=== PATIENT | female | born 1965 | race Two or more races ===

== ENCOUNTER 2017-08-17 10:10 | Observation (INO) | payer OTHER ==
[2017-08-17] MEDS ORDERED: ADENOSINE 6 MG/2 ML VIAL ONE (10:34)
--- NOTE | 2017-08-17 10:34 | CPEKG ---
Heart Rate: 176 RR Interval: 341 QRSD Interval: 74 QT Interval: 292 QTC Interval: 500 QRS [place]: -5 T Wave [place]: 96 EKG Severity - ABNORMAL ECG - EKG Impression: ATRIAL FIBRILLATION WITH RAPID V-RATE EKG Impression: VENTRICULAR PREMATURE COMPLEX EKG Impression: LVH WITH SECONDARY REPOLARIZATION ABNORMALITY Electronically Signed By: Hao Martinez 18-Aug-2017 13:56:06
[2017-08-17] MEDS ORDERED: DILTIAZEM 25 MG/5 ML VIAL IVP ONE ×2 (10:40)
[2017-08-17] MEDS ORDERED: DILTIAZEM 125 MG in D5W 125 ML IV ONE (10:40)
--- NOTE | 2017-08-17 10:44 | EDPHY ---
H & P Stated Complaint: feeling "weak all over" since 6 am fatigue Time Seen by Provider: 08/17/17 10:30 - Personal History LMP (Females 10-55): Unknown Current Tetanus/Diphtheria Vaccine: Unsure Current Tetanus Diphtheria and Acellular Pertussis (TDAP): Unsure - Medical/Surgical History Hx Asthma: Yes Hx Chronic Respiratory Disease: No Hx Diabetes: No Hx Cardiac Disease: No Hx Renal Disease: No Hx Cirrhosis: No Hx Alcoholism: No Hx HIV/AIDS: No Hx Splenectomy or Spleen Trauma: No Other PMH: Gastric bypass, htn. carpal tunnel surg. Cholecystectomy. "Migraines ". pneumia admission [facility] 08/05/17 - Social History Smoking Status: Former smoker Constitutional: Initial Vital Signs Temperature (C) 36.7 C 08/17/17 10:15 Heart Rate 155 H 08/17/17 10:15 Respiratory Rate 22 H 08/17/17 10:15 Blood Pressure 88/71 L 08/17/17 10:15 O2 Sat (%) 100 08/17/17 10:15 O2 Delivery Mode Nasal Cannula O2 (L/minute) 4 Allergies/Adverse Reactions: No Known Allergies Allergy (Verified 08/17/17 10:12) Home Medications: Medication Instructions Recorded Albuterol 08/17/17 Amlodipine Besylate 08/17/17 Budesonide/Formoterol 160/4.5 2 puffs IH BID 08/17/17 [Symbicort 160-4.5 Mcg Inh (*)] Escitalopram Oxalate [Lexapro] 15 mg PO DAILY@12 08/17/17 Ferrous Sulfate [Ferrous Sulf 325 325 mg PO DAILY 08/17/17 MG (*)] Metoprolol Succinate 08/17/17 Pantoprazole Sodium [Protonix 40mg 40 mg PO BID 08/17/17 (*)] hydrALAZINE [Apresoline 50 mg (*)] 50 mg PO QID 08/17/17 predniSONE [predniSONE] 20 mg PO DAILY 08/17/17 Medical Decision Making - Diagnostics Imaging Results: Imaging Impressions Chest X-Ray 08/17/17 10:41 Impression: 1. Mild airways disease and hypoventilation. No pneumonia or effusion. 2. Minimal cardiomegaly. No failure. Imaging: Discussed imaging studies w/ call manager Radiologist, I viewed and interpreted images myself ED Course/Re-evaluation: CHIEF COMPLAINT: Rapid heart rate HISTORY OF PRESENT ILLNESS: The patient is a 52 y/o female arriving with her family member complaining of a rapid heart rate onset 06:00 this morning, 4.5 hours ago. She has no prior history of arrhythmias or cardiac disease, but does have asthma and sarcoidosis that affects her joints and lungs. She was admitted to [facility] for a week 07/30/17-08/05/17 for pneumonia. She has felt okay since then until symptoms began this morning. She has associated palpitations and exertional dyspnea. REVIEW OF SYSTEMS: A 10 point review of systems was performed and is negative with the exception of the elements mentioned in the history of present illness. PHYSICAL EXAM: HR 189, BP 128/80, O2 Sat, RR. Temp noted General Appearance: Alert, well hydrated, appropriate, and obese, anxious- appearing. Head: Atraumatic without scalp tenderness or obvious injury Eyes: Pupils equal, round, reactive to light and accommodation, EOMI, no trauma , no injection. Nose: Atraumatic, no rhinorrhea, clear. Throat: Mucus membranes moist. Neck: Supple Respiratory: No retractions, no distress, no wheezes, and no accessory muscle use. Lungs are clear to auscultation bilaterally. Cardiovascular: Rapid irregular rate and rhythm, no murmurs, rubs, or gallops. Good capillary refill all extremities. Gastrointestinal: Abdomen is soft, non-tender, non-distended, no masses, no rebound, no guarding, no peritoneal signs. Musculoskeletal: Normal active ROM of all extremities, atraumatic. Neurological: Alert, appropriate, and interactive. The patient has non-focal cranial nerves, motor, sensory, and cerebellar exam. Skin: No rashes, good turgor, no nodules on palpation. PAST MEDICAL HISTORY: Asthma, sarcoidosis with lung and joint involvement, hypertension, migraines PAST SURGICAL HISTORY: Gastric bypass, cholecystectomy SOCIAL HISTORY: Family member at bedside. . Lives in [place]. Employed. DIAGNOSTICS/PROCEDURES/CRITICAL CARE TIME: The 12 lead EKG was interpreted by myself. Rapid atrial fibrillation rate 179. See hard copy and/or "tracemaster" electronic copy for interpretation. The 12 lead EKG was interpreted by myself. Atrial fibrillation with controlled rate 95-105. See hard copy and/or "tracemaster" electronic copy for interpretation. Chest x-ray: cardiomegaly Critical care time spent by me, Dr. Martinez, exclusively with this patient was 35 minutes, exclusive of PA time and exclusive of procedures. The organ system at risk was cardiovascular. Time spent in serial assessments of the patient, discussion with patient's family, consideration of rate control methods, cardiology consultation, and review of labs, imaging, and EKGs. DIFFERENTIAL DIAGNOSIS: The differential diagnosis for the patient's narrow complex tachycardia included but was not limited to various causes of sinus tachycardia such as dehydration and medicines, SVT, atrial flutter, atrial fibrillation, pulmonary causes. MEDICAL DECISION MAKING: This is an obese 52 y/o female who presents with a 4.5-hour history of acute onset rapid heart rate this morning. Her initial heart rate is around 180 and irregular, likely rapid atrial fibrillation. She has a history of asthma and sarcoidosis, but no prior history of cardiac disease or dysrhythmias. Plan for IV, labs, EKG, and appropriate rate control based on EKG. EKG shows rapid atrial fibrillation around 180. IV Diltazem bolus and drip ordered. 1050: Repeat EKG shows atrial fibrillation now with controlled rate between 95- 105. WBC elevated 24, troponin elevated, BNP elevated, and chest x-ray shows cardiomegaly. Consistent with acute CHF with heart strain from rapid rate. 1132: Consulted with [facility]. They will consult on patient during admission. 1138: Spoke with hospitalist service. Dr. Hanson accepts admission for atrial fibrillation, CHF, and elevated troponin. - Data Points Laboratory Results: Laboratory Results 08/17/17 10:50 08/17/17 10:50 08/17/17 08/17/17 08/17/17 10:50 10:50 10:50 WBC 24.49 10^3/uL H 10^3/uL (3.80-9.50) RBC 3.05 10^6/uL L 10^6/uL (4.18-5.33) Hgb 8.1 g/dL L g/dL (12.6-16.3) Hct 27.8 % L % (38.0-47.0) MCV 91.1 fL fL (81.5-99.8) MCH 26.6 pg L pg (27.9-34.1) MCHC 29.1 g/dL L g/dL (32.4-36.7) RDW 31.8 % H % (11.5-15.2) Plt Count 286 10^3/uL 10^3/uL (150-400) MPV 9.5 fL fL (8.7-11.7) Neut % (Auto) Not Reported Lymph % (Auto) Not Reported Clarke % (Auto) Not Reported Eos % (Auto) Not Reported Baso % (Auto) Not Reported Nucleat RBC Rel Count 2.4 % H % (0.0-0.2) Absolute Neuts (auto) Not Reported Absolute Lymphs (auto) Not Reported Absolute Monos (auto) Not Reported Absolute Eos (auto) Not Reported Absolute Basos (auto) Not Reported Absolute Nucleated RBC 0.58 10^3/uL H 10^3/uL (0-0.01) Immature Gran % Not Reported Seg Neutrophils % 96 % % Band Neutrophils % 1 % % Lymphocytes % 1 % % Monocytes % 2 % % Immature Gran # Not Reported Absolute Seg Neuts 23.51 10^/uL H 10^/uL (1.70-6.50) Absolute Band Neuts 0.24 10^3/uL 10^3/uL (0.00-0.70) Absolute Lymphocytes 0.24 10^3/uL L 10^3/uL (1.00-3.00) Absolute Monocytes 0.49 10^3/uL 10^3/uL (0.30-0.80) Nucleated RBCs 1 /100 WBC H /100 WBC (0-0) Platelet Estimate ADEQUATE (ADEQ) Polychromasia 2+ H Hypochromasia 1+ H Microcytic Cells 1+ H Oval Macrocytes 1+ H Smear Review By Pending PT 13.1 SEC SEC (12.0-15.0) INR 0.97 (0.83-1.16) APTT 21.1 SEC L SEC (23.0-38.0) Sodium 138 mEq/L mEq/L (135-145) Potassium 4.2 mEq/L mEq/L (3.5-5.2) Chloride 105 mEq/L mEq/L (97-110) Carbon Dioxide 19 mEq/l L mEq/l (22-31) Anion Gap 14 mEq/L mEq/L (8-16) BUN 24 mg/dL H mg/dL (7-23) Creatinine 1.2 mg/dL H mg/dL (0.6-1.0) Estimated GFR 47 Glucose 140 mg/dL H mg/dL (70-100) Calcium 9.0 mg/dL mg/dL (8.5-10.4) Magnesium 2.1 mg/dL mg/dL (1.6-2.3) Troponin I 0.057 ng/mL H ng/mL (0.000-0.034) NT-Pro-B Natriuret Pep 1700 pg/mL H pg/mL (0-125) Medications Given: Discontinued Medications Diltiazem HCl (Cardizem 25 Mg/5 Ml Vial) 20 mg IVP EDNOW ONE Stop: 08/17/17 10:41 Last Admin: 08/17/17 10:42 Dose: 20 mg Diltiazem HCl 125 mg/ Dextrose 125 mls @ 0 mls/hr IV EDNOW ONE; As Directed PRN Reason: Protocol Stop: 08/17/17 10:41 Last Admin: 08/17/17 11:50 Dose: Not Given Diltiazem/Dextrose (Diltiazem 125mg/125ml (Premix)) 125 mls @ 0 mls/hr IV EDNOW ONE; Titrate PRN Reason: Protocol Stop: 08/17/17 11:01 Last Admin: 08/17/17 11:11 Dose: 125 mls Departure - Departure Disposition: Home, Routine, Self-Care Clinical Impression: New onset atrial fibrillation, Elevated troponin CHF (congestive heart failure) Qualifiers: Congestive heart failure type: unspecified Congestive heart failure chronicity : acute Qualified Code(s): I50.9 - Heart failure, unspecified Condition: Fair Referrals: Tomas Dos Santos MD [Primary Care Provider] - As per Instructions Report Scribed for: Hao Martinez Report Scribed by: Danay Bailey Date of Report: 08/17/17 Time of Report: 11:25
--- NOTE | 2017-08-17 10:53 | CPEKG ---
Heart Rate: 94 RR Interval: 638 QRSD Interval: 78 QT Interval: 356 QTC Interval: 446 QRS [place]: 4 T Wave [place]: 79 EKG Severity - ABNORMAL ECG - EKG Impression: ATRIAL FIBRILLATION EKG Impression: LEFT VENTRICULAR HYPERTROPHY Electronically Signed By: Hao Martinez 18-Aug-2017 13:56:06
--- NOTE | 2017-08-17 10:55 | CPEKG ---
Heart Rate: 176 RR Interval: 341 QRSD Interval: 78 QT Interval: 292 QTC Interval: 500 QRS [place]: 2 T Wave [place]: 92 EKG Severity - ABNORMAL ECG - EKG Impression: ATRIAL FIBRILLATION WITH RAPID V-RATE EKG Impression: LVH WITH SECONDARY REPOLARIZATION ABNORMALITY Electronically Signed By: Hao Martinez 18-Aug-2017 13:56:06
[2017-08-17] MEDS ORDERED: DILTIAZEM HCL/D5W 125 ML IV SCH ×2 (11:00)
[2017-08-17] MEDS ORDERED: DILTIAZEM HCL/D5W 125 ML IV ONE (11:00)
[2017-08-17 11:03] LABS: PLATELET COUNT 286 10^3/uL (150-400)
[2017-08-17 11:32] LABS: INR 0.97 (0.83-1.16); PROTIME(PATIENT) 13.1 SEC (12.0-15.0)
[2017-08-17] MEDS ORDERED: ONDANSETRON 4 MG/2 ML VIAL IVP PRN (12:48)
[2017-08-17] MEDS ORDERED: ACETAMINOPHEN 325 MG TAB PO PRN (12:48)
[2017-08-17] MEDS ORDERED: ONDANSETRON DISINTEGRATING 4 MG TAB PO PRN (12:48)
[2017-08-17] MEDS ORDERED: ALBUTEROL 60 PUFFS/8 GM MDI IH PRN (13:36)
--- NOTE | 2017-08-17 13:48 | GHP ---
[f rep st] HISTORY AND PHYSICAL DATE OF ADMISSION: 08/17/2017 HISTORY OF PRESENT ILLNESS: The patient is a pleasant 52-year-old female with a history of sarcoidos is, remote gastric bypass, as well as recent admission to [facility], where she was diagnosed wit h sepsis and pneumonia. She was discharged on a course of steroids, which she is currently completin g. She presents today with palpitations and shortness of breath and some subjective chest pain. She was found to be in rapid atrial fibrillation, which is a new finding for her. In speaking with her, she also notes a bit of dysuria. She did not have a catheter during a recent admission. This morni ng at 6 a.m. she noted rapid heart rate. She also had what she described as a large abdominal wall hematoma, with distention from low-molecula r weight heparin injections that required been any imaging or consideration of evacuation. She does not have pain there. REVIEW OF SYSTEMS: Complete 10-point Review of Systems conducted negative except as noted in the HPI . PAST MEDICAL HISTORY: 1. Sarcoidosis primarily manifested as a skin rash on her lower extremities, some joint pains, and p ulmonary symptoms such as asthma. 2. Gastric bypass. 3. Hypertension. 4. Carpal tunnel surgery. 5. Cholecystectomy. 6. Migraines. 7. Recent admission to [facility]. ALLERGIES: No known drug allergies. MEDICATIONS: Albuterol, amlodipine, metoprolol, as well as possible steroid taper. SOCIAL HISTORY: No tobacco, quit 25 years ago. Rare alcohol. Lives in [place]. Works as a rec eptionist in a dentist's office. FAMILY HISTORY: Her mother recently had a 4-vessel bypass, and is currently an inpatient at [facility]. PHYSICAL EXAMINATION: VITAL SIGNS: Temp 36.7. Blood pressure 88/71, now over 100. Pulse initially 155, now in the 90s. She is breathing 20 times a minute. 100% on 2 L. GENERAL: In no acute distr ess. HEENT: Sclerae anicteric. Oropharynx clear. Mucous membranes are moist. NECK: Supple witho ut lymphadenopathy or JVD. LUNGS: Clear to auscultation bilaterally, although her exam is limited b y her body habitus. HEART: S1, S2. Regular. ABDOMEN: Soft. There is a 15-inch diameter circular ecchymoses without fluctuance or pain with palpation. LOWER EXTREMITIES: Show trace edema bilatera lly. Calves are nontender. SKIN: Without rash. NEUROLOGIC: Nonfocal. LABS: Sodium 138, potassium 4.2, chloride 105, bicarb 19, BUN 24, creatinine 1.2, normal baseline is 0.9. Glucose 140. Troponin 0.057. BNP is elevated at 1700. INR is 1. White count is 24.5, with a hemoglobin of 8, hematocrit of 27.8, platelets of 286,000. She has a left shift. IMAGING STUDIES: Chest x-ray, interpreted by me, shows airway disease and cardiomegaly. There is no congestive heart failure. EKG: Presenting EKG, interpreted by me, shows rapid atrial fibrillation at 176, normal axis, diffuse ST changes, and peak T-waves. Subsequent EKG shows AFib at a rate of mo re around 100 or 90, with no ST or T-wave changes, and is not on EKG since she converted. I have dis cussed the case Dr. Hao Martinez. ASSESSMENT AND PLAN: 52-year-old female, who presents with leukocytosis, new atrial fibrillation, re cent hospitalization. 1. Atrial fibrillation. She currently converted on a diltiazem drip. I will not continue this. I will reconcile her medications when they have been completed by pharmacy. 2. Question pulmonary embolism. Patient has a recent hospitalization. 3. Rapid atrial fibrillation. Will do a CT pulmonary embolus to rule out pulmonary embolism. I do not think she has pneumonia. 4. Leukocytosis. This is reactive. She has had steroids. Although they are not in the MAR, she te lls me she has had them. I will send a urinalysis. 5. Urinary urgency. Sent urinalysis. 6. Elevated troponin. We will cycle this. Perform echocardiogram in conjunction with the new atria l fibrillation. 7. Question anticoagulation. Patient does not warrant anticoagulation given her CHADS-VASc of 1, ti me limited atrial fibrillation. 8. Abdominal wall hematoma. I will check an abdominal ultrasound. 9. Disposition: Observation status. /[id number]/MODL
[2017-08-17] MEDS ORDERED: IOPAMIDOL (ISOVUE 370) 100 ML BTL IV ONE (13:59)
[2017-08-17] MEDS ORDERED: ALBUTEROL 200 PUFFS/18 GM MDI IH PRN (14:30)
[2017-08-17] MEDS: ESCITALOPRAM OXALATE 10 MG TAB PO SCH (16:47)
[2017-08-17] MEDS ORDERED: ENOXAPARIN 80 MG/0.8 ML SYR SC SCH ×2 (18:00→21:00)
--- NOTE | 2017-08-17 18:15 | ECHO ---
[email or web address] [address] [address] Main: [phone] Fax: Transthoracic Echocardiogram Name: JOSE RAUL KUHN MR#: [id number] Study Date: 08/17/2017 Study Time: 02:03 PM Date of : 1965 Age: 52 year(s) Height: 162.6 cm (64 in.) Weight: 83.92 kg (185 lb.) BSA: 1.89 m2 Gender: Female Examination: Echo Indication: new AF Image Quality: Technically Difficult Contrast: Requested by: Mario Hanson BP: 122 mmHg/72 mmHg Heart Rate: Rhythm: Indication: new AF Procedure Staff Granite Countertop Installer: Keyanna Monsalve Reading Physician: John Lombardo Requesting Provider: Conclusions: Normal size left ventricle. Mild concentric LV hypertrophy. Normal global systolic LV function. EF is 71 %. No regional wall motion abnormality. Normal size right ventricle. Normal RV function. The left atrium is normal in size. The right atrium is normal in size. Aortic valve is not well visualized. Aortic sclerosis is present. Trivial to mild aortic valve regurgitation. Mean aortic valve gradient 12. Mildly elevated velocity across the aortic valve. Tricuspid valve not well visualized. There is no significant tricuspid valve regurgitation. Normal size aortic root measuring 2.7 cm. Normal size ascending aorta measuring 3.5 cm. No pericardial effusion. This is a poor quality study. A cause for the patient's new onset atrial fibrillation is not identified on the basis of this study. Measurements: Chambers Valvular Assessment AV/MV Valvular Assessment TV/PV Normal Normal Normal Name Value Range Name Value Range Name Value Range Ao Janna (MM): 2.7 cm (2.2 cm-3.7 AV Vmax: 2.32 m/s (1 m/s-1.7 PV Vmax: 1.24 m/s (0.6 m/s-0.9 cm) m/s) m/s) Patient: JOSE RAUL KUHN Study Date: 08/17/2017 Page 1 of 2 02:03 PM IVSd (MM): 1.2 cm (0.6 cm-0.9 AV maxP mmHg ( - ) PV PGmax: 6 mmHg ( - ) cm) AV meanP mmHg ( - ) LVDd (MM): 5.0 cm (3.9 cm-5.3 LVOT Vmax: 1.33 m/s (0.7 m/s-1.1 cm) m/s) LVDs (MM): 3.0 cm (2 cm-3.8 NAEEM (Vmax): 1.8 cm2 ( - ) cm) NAEEM (VTI): 1.9 cm ( - ) LVPWd (MM): 1.1 cm (0.6 cm-0.9 MV E Vmax: 0.96 m/s ( - ) cm) MV A Vmax: 1.36 m/s ( - ) LVOTd 2.0 cm 2.0 cm mm MV E/A: 0.71 ( - ) LVEF (MM): 71 (>=55 %) MV meanP mmHg ( - ) MVA (Vmax): 2.3 m/s ( - ) Continued Measurements: Valvular Assessment AV/MV Name Value MV DecTime: 264 m/s MV VTI: 38.60 cm Additional Vessels Name Value Ao Ascendin.5 cm Findings: Left Ventricle: Normal size left ventricle. Mild concentric LV hypertrophy. Normal global systolic LV function. EF is 71 %. No regional wall motion abnormality. Right Ventricle: Normal size right ventricle. Normal RV function. Left Atrium: The left atrium is normal in size. Right Atrium: The right atrium is normal in size. Mitral Valve: The mitral valve is normal in appearance and function. There is no mitral valve regurgitation. Aortic Valve: Aortic valve is not well visualized. Aortic sclerosis is present. Trivial to mild aortic valve regurgitation. Mean aortic valve gradient 12. Mildly elevated velocity across the aortic valve. Tricuspid Valve: Tricuspid valve not well visualized. There is no significant tricuspid valve regurgitation. Pulmonic Valve: Pulmonary valve not well visualized. Aorta: Normal size aortic root measuring 2.7 cm. Normal size ascending aorta measuring 3.5 cm. Pericardium: No pericardial effusion. (No Signature Object) Patient: JOSE RAUL KUHN Study Date: 08/17/2017 Page 2 of 2 02:03 PM [id number]
[2017-08-17] MEDS: PANTOPRAZOLE SODIUM 40 MG TAB PO SCH (20:13)
[2017-08-17] MEDS ORDERED: LORazepam 0.5 MG TAB PO ONE (20:15)
[2017-08-17] MEDS: BUDESONIDE/FORMOTEROL 160/4.5 60 PUFFS/MDI IH SCH (21:49)
--- NOTE | 2017-08-17 21:54 | CPEKG ---
Heart Rate: 82 RR Interval: 732 P-R Interval: 152 QRSD Interval: 84 QT Interval: 404 QTC Interval: 472 P [place]: 14 QRS [place]: -6 T Wave [place]: 76 EKG Severity - ABNORMAL ECG - EKG Impression: SINUS RHYTHM EKG Impression: LEFT VENTRICULAR HYPERTROPHY Electronically Signed By: Bradley Fraga 18-Aug-2017 10:04:42
--- NOTE | 2017-08-17 23:18 | PDCONSULT ---
Rn Field Note: #[id number] Surgery consult dictated S MD Kathya, FACS
--- NOTE | 2017-08-18 00:10 | GCON ---
[f rep st] CONSULTATION SURGICAL CONSULTATION DATE OF CONSULTATION: 08/17/2017 REFERRING PHYSICIAN: Dr. Mario Hanson. CHIEF COMPLAINT: Abdominal wall bruising and hematoma. HISTORY OF PRESENT ILLNESS: The patient is a 52-year-old female, who was hospitalized at [facility] recently for pneumonia and sepsis. The patient received prophylactic anticoagulation with subcu taneous injections in the abdominal wall at that time, and was discharged home to complete a steroid taper. She was admitted earlier today when she developed tachycardia and was found to be in rapid at rial fibrillation. A CT angio of the chest showed bilateral pulmonary emboli. PAST MEDICAL HISTORY: Significant for sarcoidosis, obesity, hypertension, and migraines. Recent hos pitalization for pneumonia. Currently, atrial fibrillation with rapid ventricular response. PREVIOUS SURGERIES: Include gastric bypass, cholecystectomy, abdominoplasty, and carpal tunnel surge ry. ALLERGIES: She has no known drug allergies. CURRENT MEDICATIONS: Include Tylenol, albuterol inhaler, amlodipine, Symbicort, Lexapro, ferrous sul fate, heparin, hydralazine, metoprolol, Zofran, Protonix, prednisone. HABITS: Patient quit smoking cigarettes 25 years ago. Denies alcohol use. SOCIAL HISTORY: The patient's mother underwent open heart surgery at [facility] and remains hospitalized for postoperative recovery. The patient works in a dentist's office. FAMILY HISTORY: Significant for vascular disease. REVIEW OF SYSTEMS: Patient denies abdominal pain, nausea, vomiting. PHYSICAL EXAMINATION: VITAL SIGNS: Blood pressure is 156/79, pulse is 92, respiratory rate is 27, O 2 saturation is 98% on 1 L, temperature is 37.3. GENERAL: The patient is a pleasant, mildly anxious , middle-aged woman who appears in no acute distress. LUNGS: Clear. HEART: Irregular in rate and rhythm with a 2/6 systolic ejection murmur. ABDOMEN: Protuberant, soft with a well-healed midline i ncision. There is diffuse ecchymoses and mild tenderness on either side of the midline. There is no fluctuance. Ecchymosis extends into the flank and hip areas on both sides, indicating some chronici ty. IMAGING STUDIES: Review the patient's CT scan shows mild cardiomegaly, prominent mediastinal lymph n odes, segmental right middle lobe and left lower lobe pulmonary emboli of indeterminate age. The lef t upper abdominal wall hematoma is partially seen on this study. Abdominal ultrasound showed bilater al abdominal wall hematomas measuring 8.9 x 12.5 x 4.4 on the right and 11.7 x 11 x 3 cm on the left. IMPRESSION: 1. Bilateral abdominal wall hematomas, possibly related to prior injections though spontaneous hemor rhage while on anticoagulation can occur. These do not appear acute and are minimally symptomatic at this time. 2. Bilateral pulmonary emboli. 3. New onset atrial fibrillation with rapid ventricular response. 4. Obesity. 5. Status post gastric bypass surgery and cholecystectomy with abdominoplasty. 6. Recent hospitalization for pneumonia/bronchitis. Currently on a steroid taper. 7. History of sarcoidosis. RECOMMENDATIONS: Would recommend observation and monitor while instituting anticoagulation therapy p er Medicine. I would consider indications for drainage if either one of the hematomas was infected o r underwent rapid expansion. /[id number]/MODL
[2017-08-18] MEDS ORDERED: MELATONIN 3 MG TAB PO PRN (00:11)
[2017-08-18] MEDS: oxyCODONE IR 5 MG TAB PO PRN ×3 (00:42→10:02)
[2017-08-18 04:39] LABS: PLATELET COUNT 208 10^3/uL (150-400)
[2017-08-18 04:44] VITALS: BP 167/79
[2017-08-18] MEDS ORDERED: HEPARIN/DEXTROSE 500 ML IV SCH (05:00)
[2017-08-18] MEDS ORDERED: HEPARIN 10,000 UNIT/10 ML MDV IVP PRN (05:00)
[2017-08-18] MEDS ORDERED: HEPARIN 10,000 UNIT/10 ML MDV IVP ONE (05:00)
[2017-08-18 07:11] VITALS: PULSE 83; RESP 15; TEMP 98.5; O2SAT 96
[2017-08-18] MEDS: PANTOPRAZOLE SODIUM 40 MG TAB PO SCH (08:40)
[2017-08-18] MEDS: BUDESONIDE/FORMOTEROL 160/4.5 60 PUFFS/MDI IH SCH (08:41)
[2017-08-18] MEDS ORDERED: METOPROLOL SUCCINATE XR 100 MG TAB PO SCH (09:00)
[2017-08-18] MEDS ORDERED: predniSONE 10 MG TAB PO SCH (09:00)
[2017-08-18] MEDS ORDERED: FERROUS SULFATE 325 MG TAB PO SCH (09:00)
[2017-08-18] MEDS ORDERED: RIVAROXABAN 15 MG TAB PO SCH (09:30)
[2017-08-18] MEDS: ESCITALOPRAM OXALATE 10 MG TAB PO SCH (12:22)
--- NOTE | 2017-08-18 14:02 | ASDISCHSUM ---
Discharge Information Plan Status:Home with No Needs Medically Cleared to Leave: Discharge Date:08/18/2017 01:15 PM CM D/C Disposition:Home, Routine, Self-Care ADT D/C Disposition:Home, Routine, Self-Care Projected Discharge Date:08/18/2017 01:15 PM Transportation at D/C:Family Discharge Delay Reason: Follow-Up Date:08/18/2017 01:15 PM Discharge Slot: Final Diagnosis: Placement Information Patient Contact Information Contact Name:SWETHA Relationship: Address:[address] City:[place] Alternate Phone: [facility]/Zip Code:[place] [address] Email: Financial Information Financial Class:HMO and PPO Plans Primary Plan Desc:[employer] Primary Plan Number:[id number] Secondary Plan Desc: Secondary Plan Number: Assessment Information Intervention Information Intervention Type:*Incorrect Registration Date of Service:08/17/2017 01:40 PM Patient Type:Inpatient Staff Member:LAMONT Fajardo Kerry Hours: Discipline: Severity: Comment:
--- NOTE | 2017-08-19 05:10 | GDS ---
[f rep st] DISCHARGE SUMMARY DISCHARGE DIAGNOSES: Include: 1. Acute bilateral pulmonary emboli. 2. Atrial fibrillation with rapid ventricular response. 3. History of sarcoidosis. 4. Abdominal wall hematoma. HISTORY OF PRESENT ILLNESS: A 52-year-old female, who presents with complaints of palpitations. For details of the patient's initial presentation, please see the history and physical dated 08/17/2017. CONSULTATIVE SERVICES: General Surgery. PROCEDURES: 1. On 08/17/2017, patient had a CTA of the chest, which confirms bilateral pulmonary emboli. 2. On 08/17/2017, patient had a transthoracic echocardiogram, which confirms normal RV size and func tion. HOSPITAL COURSE: By issue: 1. Acute pulmonary embolism. Suspect related to the patient's recent hospitalization. The patient was initiated on anticoagulation overnight without complication related to her abdominal wall hematom a. The patient is being discharged to home with novel anticoagulant, Rivaroxaban. She will complete a 21 day load and then assume daily 20 mg dosing. 2. Atrial fibrillation with rapid ventricular response. I suspect this is related to acute pulmonar y embolism. The patient's atrial fibrillation converted to sinus overnight. She is being discharged on anticoagulation for pulmonary embolism and is chronically on metoprolol 100 mg daily. I do not t hink additional treatment is required at this time. She can follow with her outpatient primary care provider. 3. Abdominal wall hematoma thought secondary to anticoagulants used at the outside hospital. The andre khan will continue to follow in the outpatient setting. Her hematoma remained stable on anticoagula tion during her observation stay. MEDICATIONS AT THE TIME OF DISPOSITION: Please reference med rec printed on 08/18/2017. FOLLOWUP APPOINTMENTS: Include with her primary care provider in the next 7-10 days for her first po st disposition followup. PENDING STUDIES: At the time of this dictation are none. TIME SPENT: I spent greater than 30 minutes in the planning and coordination of this discharge. /[id number]/MODL
== END 2017-08-18 13:15 | disposition home or self-care (01) ==
LOC: INTOOBSV 11:47 → F2W 12:49
PROVIDERS: ADMIT Internal Medicine; ATTEND Hospitalist
DX: I48.91 Unspecified atrial fibrillation (principal); I26.99 Other pulmonary embolism without acute cor pulmonale; M79.81 Nontraumatic hematoma of soft tissue; T45.515A Adverse effect of anticoagulants, initial encounter; D72.829 Elevated white blood cell count, unspecified; R79.89 Other specified abnormal findings of blood chemistry; I51.7 Cardiomegaly; I10 Essential (primary) hypertension; J45.909 Unspecified asthma, uncomplicated; G43.909 Migraine, unspecified, not intractable, without status migrainosus; R30.0 Dysuria; E66.9 Obesity, unspecified; Z79.01 Long term (current) use of anticoagulants; Z87.891 Personal history of nicotine dependence; Z87.39 Personal history of other diseases of the musculoskeletal system and connective tissue; Z87.09 Personal history of other diseases of the respiratory system; Z82.49 Family history of ischemic heart disease and other diseases of the circulatory system; Z98.84 Bariatric surgery status
CPT/HCPCS: 71045; 71275; 76705; 93005; 93306; 96365; 96366; 96375; 99291; G0378; 85520-90; J0153; J1644; J1650; J7512; Q9967

== ENCOUNTER → 2018-04-15 | Outpatient (CLI) | payer OTHER | LOC: CIMAGING 09:39 | PROVIDERS: ATTEND Family Medicine | DX: J98.09 Other diseases of bronchus, not elsewhere classified (principal) | CPT/HCPCS: 71046-PO ==

== ENCOUNTER 2018-08-06 22:35 | Inpatient (IN) | payer OTHER ==
--- NOTE | 2018-08-06 22:46 | EDPHY ---
H & P Stated Complaint: ASTHMA EXAC Time Seen by Provider: 08/06/18 22:46 HPI/ROS: HPI CHIEF COMPLAINT: "Asthma attack" HISTORY OF PRESENT ILLNESS: 53-year-old female, multiple medical problems including asthma, previous pulmonary embolisms, hypertension, migraine headaches , sarcoidosis, AFib, was been off the Xarelto for 2 weeks. Presents emergency room with progressively worsening shortness of breath over last 24 hr with dyspnea on exertion. Dry cough. States her main complaint is that when she exerts herself she gets short of breath. No significant wheezing. Denies fever , vomiting or diarrhea. Past Medical History: Significant medical history for asthma, pulmonary embolism, hypertension, migraine headaches, sarcoidosis, AFib Past Surgical History: Cholecystectomy Social History: Denies drugs alcohol tobacco. Family History: Noncontributory ROS REVIEW OF SYSTEMS: 10 Systems were reviewed and negative with the exception of the elements mentioned in the history of present illness. Exam Constitutional triage nursing summary reviewed, vital signs reviewed, awake/ alert. Vital signs noted tachycardic. Not hypoxic. Hypertensive. Eyes normal conjunctivae and sclera, EOMI, PERRLA. HENT normal inspection, atraumatic, moist mucus membranes, no epistaxis, neck supple/ no meningismus, no raccoon eyes. Respiratory no significant wheezing on exam clear to auscultation bilaterally, normal breath sounds, no respiratory distress, no wheezing. Cardiovascular tachycardia l, regular rhythm, no murmur, no edema, distal pulses normal. Gastrointestinal soft, non-tender, no rebound, no guarding, normal bowel sounds, no distension, no pulsatile mass. Genitourinary no CVA tenderness. Musculoskeletal no midline vertebral tenderness, full range of motion, no calf swelling, no tenderness of extremities, no meningismus, good pulses, neurovascularly intact. Skin pink, warm, & dry, no rash, skin atraumatic. Neurologic awake, alert and oriented x 3, AAOx3, moves all 4 extremities equally, motor intact, sensory intact, CN II-XII intact, normal cerebellar, normal vision, normal speech. Psychiatric normal mood/affect. Heme/Lymph/Immune no lymphadenopathy. Differential Diagnosis: Includes but is not limited to in a particular order acute asthma corrective airway disease, bronchitis, pneumonia, pneumothorax, CHF , ACS PE Medical Decision Making: Plan for this patient she is not wheezing, clear lungs bilaterally, however complains of shortness of breath and dyspnea on exertion, no chest pain. Re-evaluation: Plan for this patient breathing treatment, chest x-ray, EKG, troponin, D-dimer, IV falls, basic blood work, rule out ACS, rule out PE. EKG interpretation by me on record in [employer] [facility] [employer] system. Impression time of EKG 2256, sinus tach 111, LVH present. Left atrial enlargement present. Prolonged QT present. Without acute ischemia. Patient noted to have an elevated D-dimer in the setting of previous PEs and shortness of breath without wheezing on exam will proceed with CT angiogram of the chest. She is off her Xarelto. BNP elevated. Troponin negative. EKG nonischemic and similar to previous EKG CT angiogram of the chest shows no evidence of PE. Sarcoidosis on CT scan Enlarged lymph nodes that needs follow-up. Bilateral pleural effusions Bilateral lung infiltrates concerning for pulmonary edema Given the patient's elevated BNP, dyspnea on exertion, shortness of breath with no PE on CT scan will proceed with IV Lasix 40 mg admit to medicine service for hypoxia, shortness of breath, dyspnea on exertion. Source: Patient - Personal History LMP (Females 10-55): Unknown Current Tetanus Diphtheria and Acellular Pertussis (TDAP): Yes - Medical/Surgical History Hx Asthma: Yes Hx Chronic Respiratory Disease: Yes Hx Diabetes: No Hx Cardiac Disease: No Hx Renal Disease: No Hx Cirrhosis: No Hx Alcoholism: No Hx HIV/AIDS: No Hx Splenectomy or Spleen Trauma: No Other PMH: Gastric bypass, htn. carpal tunnel surg. Cholecystectomy. "Migraines ". pneumia admission [facility] 08/05/17, ASTHMA, PE'S - Social History Smoking Status: Former smoker Constitutional: Initial Vital Signs Temperature (C) 36.6 C 08/06/18 22:43 Heart Rate 115 H 08/06/18 22:43 Respiratory Rate 24 H 08/06/18 22:43 Blood Pressure 205/109 H 08/06/18 22:43 O2 Sat (%) 94 08/06/18 22:43 O2 Delivery Mode Nasal Cannula O2 (L/minute) 3 Allergies/Adverse Reactions: No Known Allergies Allergy (Verified 08/17/17 10:12) Home Medications: Medication Instructions Recorded Albuterol [Proventil Inhaler HFA 1 puffs IH DAILY PRN 01/12/18 (*)] Budesonide/Formoterol 160/4.5 2 puffs IH BID 08/17/17 [Symbicort 160-4.5 Mcg Inh (*)] Escitalopram Oxalate [Lexapro 10 20 mg PO DAILY@12 08/17/17 MG] Metoprolol Succinate Xr [Toprol Xl 100 mg PO DAILY 08/17/17 100 mg (*)] amLODIPine BESYLATE [Norvasc 10 mg 10 mg PO DAILY 08/17/17 (*)] hydrALAZINE [Apresoline 50 mg (*)] 50 mg PO QID 08/17/17 predniSONE 40 mg PO DAILY PRN 08/17/17 Acetaminophen [Tylenol ES 500 mg 1,000 mg PO Q6 PRN 08/07/18 (*)] Albuterol [Proventil Neb] 2.5 mg IH Q4H PRN 08/07/18 Montelukast Sodium [Singulair 10 10 mg PO DAILY@1700 08/07/18 mg (*)] Medical Decision Making - Data Points Laboratory Results: Laboratory Results 08/07/18 05:08 08/07/18 05:08 08/07/18 05:08 Potassium 3.6 mEq/L mEq/L (3.5-5.2) Microbiology Results: MICROBIOLOGY 08/07/18 09:30 Nasal, Sinus - Swab Respiratory Panel (PCR) - Final No Organism Detected By Pcr Medications Given: Acetaminophen (Tylenol) 650 mg PO Q4HRS PRN PRN Reason: Pain, Mild/Fever, Can Take PO Stop: 02/03/19 04:36 Last Admin: 08/07/18 20:22 Dose: 650 mg Hydrocodone Bitart/Acetaminophen ([place] 5/325) 1 - 2 tab PO Q4HRS PRN PRN Reason: Pain, Moderate Able to Take PO Stop: 08/17/18 04:36 Last Admin: 08/07/18 05:20 Dose: 1 tab Albuterol/Ipratropium (Duoneb) 3 ml IH Q6HRS PRN PRN Reason: Short of Breath/Dyspnea Stop: 02/03/19 12:09 Last Admin: 08/07/18 13:55 Dose: 3 ml Amlodipine Besylate (Norvasc) 10 mg PO DAILY JORDAN Stop: 02/03/19 08:59 Last Admin: 08/07/18 09:24 Dose: 10 mg Budesonide/Formoterol Fumarate (Symbicort 160-4.5 Mcg Inhaler) 2 puffs IH BID [facility] Stop: 02/03/19 20:59 Last Admin: 08/07/18 20:11 Dose: 2 puffs Furosemide (Lasix Injection) 20 mg IVP BIDDIUR [facility] Stop: 02/03/19 08:59 Last Admin: 08/07/18 15:28 Dose: 20 mg Guaifenesin (Mucinex) 600 mg PO BID [facility] Stop: 02/03/19 12:29 Last Admin: 08/07/18 20:23 Dose: 600 mg Hydralazine HCl (Apresoline) 50 mg PO QID [facility] Stop: 02/03/19 08:29 Last Admin: 08/07/18 20:23 Dose: 50 mg Lorazepam (Ativan) 0.5 - 1 mg PO Q4HRS PRN PRN Reason: Anxiety, Able to Take PO Stop: 02/03/19 22:42 Last Admin: 08/07/18 23:12 Dose: 1 mg Metoprolol Succinate (Toprol Xl) 100 mg PO DAILY [facility] Stop: 02/03/19 08:59 Last Admin: 08/07/18 09:24 Dose: 100 mg Metoprolol Tartrate (Lopressor Injection) 5 mg IVP Q6HRS [facility] Stop: 02/04/19 00:00 Last Admin: 08/07/18 23:13 Dose: 5 mg Montelukast Sodium (Singulair) 10 mg PO DAILY@1700 [facility] Stop: 02/03/19 16:59 Last Admin: 08/07/18 15:34 Dose: 10 mg Discontinued Medications Acetaminophen (Tylenol) 650 mg PO EDNOW ONE Stop: 08/06/18 23:28 Last Admin: 08/06/18 23:31 Dose: 650 mg Albuterol/Ipratropium (Duoneb) 3 ml IH EDNOW ONE Stop: 08/06/18 22:52 Last Admin: 08/06/18 22:58 Dose: 3 ml Furosemide (Lasix Injection) 40 mg IVP EDNOW ONE Stop: 08/07/18 00:32 Last Admin: 08/07/18 01:00 Dose: 40 mg Hydralazine HCl (Apresoline) 10 mg IVP ONCE ONE Stop: 08/07/18 06:49 Last Admin: 08/07/18 07:13 Dose: 10 mg Sodium Chloride (Ns) 1,000 mls @ 0 mls/hr IV EDNOW ONE; Wide Open PRN Reason: Protocol Stop: 08/06/18 22:51 Last Admin: 08/06/18 23:06 Dose: 1,000 mls Potassium Chloride (Klor-Con) 10 - 40 meq PO ONCE ONE PRN Reason: Protocol Stop: 08/07/18 19:42 Last Admin: 08/07/18 20:23 Dose: 10 meq Point of Care Test Results: Chemistry 08/06/18 23:06 POC Troponin I 0.01 ng/mL ng/mL (0.00-0.08) Departure - Departure Disposition: [facility] Inpatient Acute Clinical Impression: Dyspnea on exertion Condition: Fair
[2018-08-06] MEDS ORDERED: NS 1,000 ML IV ONE (22:50)
[2018-08-06] MEDS ORDERED: IPRATROPIUM/ALBUTEROL 3 ML DEYVIAL IH ONE (22:51)
[2018-08-06 23:12] LABS: PLATELET COUNT 185 10^3/uL (150-400)
[2018-08-06 23:20] LABS: INR 0.98 (0.83-1.16); PROTIME(PATIENT) 13.2 SEC (12.0-15.0)
[2018-08-06] MEDS ORDERED: ACETAMINOPHEN 325 MG TAB ONE (23:25)
[2018-08-06] MEDS ORDERED: ACETAMINOPHEN 325 MG TAB PO ONE (23:27)
[2018-08-06] MEDS ORDERED: IOPAMIDOL (ISOVUE 370) 100 ML BTL IV ONE (23:48)
[2018-08-07] MEDS ORDERED: FUROSEMIDE 40 MG/4 ML VIAL IVP ONE (00:31)
[2018-08-07] MEDS ORDERED: ONDANSETRON 4 MG/2 ML VIAL IVP PRN (04:37)
[2018-08-07] MEDS ORDERED: ONDANSETRON DISINTEGRATING 4 MG TAB PO PRN (04:37)
[2018-08-07] MEDS ORDERED: PROMETHAZINE HCL 25 MG/ML INJ IVP PRN (04:42)
[2018-08-07 05:16] LABS: PLATELET COUNT 165 10^3/uL (150-400)
[2018-08-07] MEDS: HYDROCODONE/APAP 5/325 TAB PO PRN (05:20)
[2018-08-07] MEDS ORDERED: hydrALAZINE 20 MG/ML VIAL IVP ONE (06:48)
[2018-08-07] MEDS: FUROSEMIDE 20 MG/2 ML VIAL IVP SCH ×2 (07:13→15:28)
--- NOTE | 2018-08-07 07:59 | PDGENHP ---
History and Physical - Chief Complaint Shortness of breath - History of Present Illness Source-patient provides history appears reliable. EMR was reviewed and case discussed with ED provider. 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 Patient reports that she developed severe dyspnea on exertion has not been able to walk more than 5 steps at a time and had to take breaks just to walk from her bed to the bathroom. She has noted increasing orthopnea and occasional PND. She has chronic lower extremity edema which she feels that is about baseline. The patient is followed by Dr. Dallas Johnston with pulmonology. She had requested that she stop her Xarelto and 07/20/2018 so that repeat lab work could be complete possibly for hyper coag lab studies. Patient also notes that she has been having increased episodes of the the asthma exacerbations and had been on a prednisone burst for the last 6 days. Patient was not having significant improvement on she had been prescribed for 5 days but took an additional 1 day dose. She denies any fevers or chills. She has no chest pain or palpitations. He History Information - Allergies/Home Medication List Allergies/Adverse Reactions: No Known Allergies Allergy (Verified 08/17/17 10:12) Home Medications: Albuterol [Proventil Inhaler HFA (*)] 1 puffs IH DAILY PRN 08/17/17 [Last Taken Unknown] Budesonide/Formoterol 160/4.5 [Symbicort 160-4.5 Mcg Inh (*)] 2 puffs IH BID 07/23 [Last Taken 08/17/17] Escitalopram Oxalate [Lexapro 10 MG] 15 mg PO DAILY@12 08/17/17 [Last Taken 06/23] Ferrous Sulfate [Ferrous Sulf 325 MG (*)] 325 mg PO DAILY 08/17/17 [Last Taken 08/16/17] Metoprolol Succinate Xr [Toprol Xl 100 mg (*)] 100 mg PO DAILY 08/17/17 [Last Taken 08/17/17] Pantoprazole Sodium [Protonix 40mg (*)] 40 mg PO BID 08/17/17 [Last Taken ] amLODIPine BESYLATE [Norvasc 10 mg (*)] 10 mg PO DAILY 08/17/17 [Last Taken 07/23] hydrALAZINE [Apresoline 50 mg (*)] 50 mg PO QID 08/17/17 [Last Taken 08/17/17 09 :00] predniSONE 20 mg PO DAILY 08/17/17 [Last Taken 08/17/17] I have personally reviewed and updated: family history, medical history, social history, surgical history - Past Medical History Additional medical history: Chronic back pain, HTN, migraine headaches, sarcoidosis presenting as a skin rash, joint pains and pulmonary symptoms such status not type, morbid obesity BMI 45.1 patient reports that she has gained 60 lb since requiring steroid burst for sarcoid, PE 08/25/2017 which for which she was treated with Xarelto recently discontinued on 07/20/2018 for labs follow-up studies, atrial fibrillation - Surgical History Additional surgical history: Gastric bypass, carpal tunnel release, cholecystectomy. - Family History Additional family history: Multiple family members with hypertension and CAD. Father with history of a CABG x5 vessel in at age 60, mother with history CABG x4 vessel age 75 - Social History Smoking Status: Former smoker Alcohol Use: Rarely Drug Use: None Additional social history: Patient is lives with her . She is receptive and a stent dental office. Cor status full Review of Systems Review of Systems: ROS: 10pt was reviewed & negative except for what was stated in HPI & below Constitutional: Reports: malaise. Denies: chills, fever EENMT: Reports: no symptoms. Denies: nose congestion, sore throat Cardiac: Reports: edema (Chronic lower extremity edema at baseline per patient.) . Denies: palpitations, syncope Respiratory: Reports: cough, orthopnea, shortness of breath, wheezing Gastrointestinal: Reports: no symptoms Genitourinary: Reports: no symptoms Muscolosketal: Reports: no symptoms Skin: Reports: no symptoms Neurological: Reports: no symptoms Hematologic/Lymphatic: Reports: no symptoms Physical Exam Physical Exam: Selected Entries 08/06/18 22:43 Blood Pressure Automatic Method Heart Rate 115 H Respiratory 24 H Rate O2 Sat (%) 94 Temperature (C) 36.6 C Blood Pressure 205/109 H Mean Arterial 141 H Pressure (MAP) O2 Delivery Room Air Mode Temperature Oral Source Temp Pulse Resp BP Pulse Ox 37.0 C 83 16 204/114 H 98 08/07/18 07:03 08/07/18 07:03 08/07/18 07:03 08/07/18 07:08 08/07/18 07:03 O2 (L/minute) 3 Constitutional: no apparent distress, obese, uncomfortable (Patient is restless and awake.), other (NAD. Pleasant and cooperative.) Eyes: PERRL (Decreased reactivity light bilaterally), anicteric sclera, EOMI, scleral injection Ears, Nose, Mouth, Throat: moist mucous membranes, No poor dentition (Dental repairs.) Cardiovascular: regular rate and rhythym, pulses symmetric bilaterally, edema (2 + pitting edema bilaterally below the knee.) Peripheral Pulses: 1+: dorsalis-pedis (R) (limited secondary to edema), dorsalis -pedis (L) (Limited secondary to edema.) Respiratory: reduced air movement, inspiratory crackles (The bibasilarly.), respiratory distress (Increased work of breathing patient able to speak in full sentences.), No expiratory wheeze, No rhonchi Gastrointestinal: normoactive bowel sounds, soft, non-tender abdomen, distension , other (Obese abdomen) Genitourinary: no bladder tenderness, No atwood in urethra Skin: warm, normal color, no rashes or abrasions, No rash Musculoskeletal: full muscle strength, No generalized weakness Neurologic: AAOx3, sensation intact bilaterally, other (Grossly nonfocal.), No facial droop Psychiatric: interacting appropriately, not encephalopathic, thought process linear, anxious, other (Pleasant and cooperative. Patient is restless.) Lab Data & Imaging Review 08/07/18 05:08 08/07/18 05:08 WBC 8.28 10^3/uL (3.80-9.50) 08/07/18 05:08 RBC 4.24 10^6/uL (4.18-5.33) 08/07/18 05:08 Hgb 13.3 g/dL (12.6-16.3) 08/07/18 05:08 Hct 40.3 % (38.0-47.0) 08/07/18 05:08 MCV 95.0 fL (81.5-99.8) 08/07/18 05:08 MCH 31.4 pg (27.9-34.1) 08/07/18 05:08 MCHC 33.0 g/dL (32.4-36.7) 08/07/18 05:08 RDW 13.5 % (11.5-15.2) 08/07/18 05:08 Plt Count 165 10^3/uL (150-400) 08/07/18 05:08 MPV 9.1 fL (8.7-11.7) 08/07/18 05:08 Neut % (Auto) 78.9 % (39.3-74.2) H 08/07/18 05:08 Lymph % (Auto) 13.4 % (15.0-45.0) L 08/07/18 05:08 Arroyo % (Auto) 7.0 % (4.5-13.0) 08/07/18 05:08 Eos % (Auto) 0.0 % (0.6-7.6) L 08/07/18 05:08 Baso % (Auto) 0.2 % (0.3-1.7) L 08/07/18 05:08 Nucleat RBC Rel Count 0.0 % (0.0-0.2) 08/07/18 05:08 Absolute Neuts (auto) 6.53 10^3/uL (1.70-6.50) H 08/07/18 05:08 Absolute Lymphs (auto) 1.11 10^3/uL (1.00-3.00) 08/07/18 05:08 Absolute Monos (auto) 0.58 10^3/uL (0.30-0.80) 08/07/18 05:08 Absolute Eos (auto) 0.00 10^3/uL (0.03-0.40) L 08/07/18 05:08 Absolute Basos (auto) 0.02 10^3/uL (0.02-0.10) 08/07/18 05:08 Absolute Nucleated RBC 0.00 10^3/uL (0-0.01) 08/07/18 05:08 Immature Gran % 0.5 % (0.0-1.1) 08/07/18 05:08 Immature Gran # 0.04 10^3/uL (0.00-0.10) 08/07/18 05:08 RBC/WBC/PLT Morphology TNP 08/06/18 23:01 Platelet Estimate TNP 08/06/18 23:01 PT 13.2 SEC (12.0-15.0) 08/06/18 23:01 INR 0.98 (0.83-1.16) 08/06/18 23:01 APTT 25.1 SEC (23.0-38.0) 08/06/18 23:01 D-Dimer 0.67 ug/mLFEU (0.00-0.50) H 08/06/18 23:01 Sodium 138 mEq/L (135-145) 08/07/18 05:08 Potassium 3.5 mEq/L (3.5-5.2) 08/07/18 05:08 Chloride 109 mEq/L (97-110) 08/07/18 05:08 Carbon Dioxide 23 mEq/l (22-31) 08/07/18 05:08 Anion Gap 6 mEq/L (6-14) 08/07/18 05:08 BUN 9 mg/dL (7-23) 08/07/18 05:08 Creatinine 0.6 mg/dL (0.6-1.0) 08/07/18 05:08 Estimated GFR > 60 08/07/18 05:08 Glucose 96 mg/dL (70-100) 08/07/18 05:08 Calcium 9.3 mg/dL (8.5-10.4) 08/07/18 05:08 Magnesium 1.9 mg/dL (1.6-2.3) 08/06/18 23:01 Total Bilirubin 0.9 mg/dL (0.1-1.4) 08/06/18 23:01 Conjugated Bilirubin 0.2 mg/dL (0.0-0.5) 08/06/18 23:01 Unconjugated Bilirubin 0.7 mg/dL (0.0-1.1) 08/06/18 23:01 AST 38 IU/L (14-46) 08/06/18 23:01 ALT 45 IU/L (9-52) 08/06/18 23:01 Alkaline Phosphatase 98 IU/L (38-126) 08/06/18 23:01 POC Troponin I 0.01 ng/mL (0.00-0.08) 08/06/18 23:06 NT-Pro-B Natriuret Pep 3600 pg/mL (0-125) H 08/06/18 23:01 Total Protein 7.7 g/dL (6.3-8.2) 08/06/18 23:01 Albumin 4.6 g/dL (3.5-5.0) 08/06/18 23:01 Lipase 49 IU/L (23-300) 08/06/18 23:01 TSH 0.699 uIU/mL (0.465-4.680) 08/07/18 05:08 Imaging Review: Portable AP Upright Chest, at 11:08 PM Clinical History: 53-year-old female with a history of known sarcoidosis, PE, asthma, a dry cough, and dyspnea on exertion with hypertension. Comparison Study: Chest, dated 04/15/2018. Findings: There are mild hypoventilatory features. The cardiac silhouette remains mildly enlarged. There is diffuse peribronchial thickening and pulmonary vascular redistribution. Overlying breast soft tissue results in some increased attenuation at the lung bases; a mild infiltrate in the left lower lobe is not excluded (PA and lateral radiographs in the department may be of benefit in further assessment, as clinically directed). There is no pleural effusion or pneumothorax. The trachea is midline. The osseous structures are age-appropriate. Impression: Mild hypoventilatory features with cardiomegaly and diffuse peribronchial thickening. The above features could reflect bronchitis/airways' disease, and/or mild fluid overload (some developing airspace disease at the left lung base is not excluded, partially obscured by overlying breast soft tissue). Dictated By: Jani Sterling MD Contrast Enhanced CT Scan of the Chest CT (CT Angiography) Clinical History: 53-year-old female with known sarcoidosis, a prior PE (off of Xarelto for 2 weeks , and a mildly elevated D-dimer), asthma, dry cough, and dyspnea on exertion. Technique: Following the uncomplicated intravenous administration of 80 mL of Isovue-370, a multidetector helical CT scan was obtained from the base of the neck inferiorly to the upper abdomen during peak arterial phase, with images reformatted in soft tissue, lung , liver, and bone windows, and are reformatted at sequential 1.50 mm and overlapping 4/3 mm increments. Multiplanar reconstructions were reviewed on the workstation. The DFOV is 31.7 cm. Dose reduction techniques were utilized. Comparison Studies: Chest radiography dated 08/06/18 and 04/15/2018, and radiography and CT angiography of the chest dated 08/17/2017. Findings: CT Angiography: The main pulmonary artery, the main right and left pulmonary arteries, and the first order pulmonary artery segments are contrast-opacified, with no filling defect to suggest acute or chronic thromboemboli. Because of breathing artifact and the timing bolus, there is inadequate assessment of the secondary and tertiary pulmonary artery segments. There is no interventricular septum deviation, nor is there any reflux of contrast into the intrahepatic IVC. The ascending and descending thoracic aorta, as well as the visualized upper abdominal aorta are normal in caliber, with no aneurysm or dissection. There is a normal anatomic arrangement of the great vessels off of the aortic arch. There is no coronary artery atherosclerotic calcification. The pericardium is normal. The heart is mildly enlarged, with mild left ventricular hypertrophy. Contrast-Enhanced CT Scan of the Chest: There is peribronchial thickening, and there has been interval development of bilateral groundglass attenuation infiltrates, with involvement of the right left upper lobes, lingula, right middle lobe, and the right and left lower lobes. These could be infectious or inflammatory in etiology (mild alveolar edema from fluid overload is considered secondarily). There is a trace amount of pleural fluid suspected posteromedially (series 5, image 146). There is no pneumothorax or pneumomediastinum. There is a 19 x 21 mm precarinal lymph node on series 5, image 75, previously measuring 11 x 12 mm. There is a 13 x 23 mm right hilar lymph node on series 5, image 83, previously measuring 12 x 13 mm. There is a 22 x 27 mm subcarinal lymph node on series 5, image 90 which previously measured 10 x 15 mm. There are also more conspicuous prevascular lymph nodes identified in the superior mediastinum on series 5, image 62. There is no supraclavicular, axillary, internal mammary, pericardiophrenic, retrocrural, or upper abdominal adenopathy. The visualized portions of the thyroid gland are normal. The visualized upper abdomen is notable for postsurgical changes following gastric bypass and a prior cholecystectomy. There is mild diffuse hepatic steatosis. The osseous structures are age-appropriate, with multilevel degenerative change of the thoracic spine. There is a very mild kyphosis, with no vertebral body compression fracture, posterior malalignment, or aggressive osseous lesion. Impression: 1. There is no convincing CT evidence for residual or recurrent pulmonary artery thromboemboli ( with the caveat that because of breathing artifact and the timing bolus, there is suboptimal assessment of the secondary and tertiary pulmonary arterial segments). 2. Cardiomegaly. 3. Diffuse peribronchial thickening with interval development of bilateral groundglass attenuation infiltrates, which could be infectious or inflammatory in etiology. The possibility of mild superimposed alveolar edema (fluid overload) is considered secondarily. There are suspected trace pleural effusions. 4. Interval enlargement of mediastinal and hilar lymph nodes in this patient with prior sarcoidosis. Clinical correlation is suggested, and it may be worthwhile to consider repeat CT imaging in 3-6 months and consultation with the patient's environmental adviser. 5. Sequela of prior gastric bypass and cholecystectomy. Findings were discussed with Nemesio Fournier MD at 0:25, on 08/07/2018. Dictated By: Jani Sterling MD EKG additional interpertation: Sinus tachycardia in the 110s. Lad. LVH. QTC is [address] changes Assessment & Plan Assessment: 53-year-old female with history of sarcoidosis, HTN, morbid obesity BMI 45.1, atrial fibrillation, history of bilateral PE status post nearly 1 year Xarelto presents to the ED today with 24 hr of worsening dyspnea on exertion, cough, edema and PND. #Dyspnea on exertion (Acute) - patient with orthopnea, PND, edema - DDx - including cardiac sarcoidosis, CHF/cardiomyopathy (significant family history for CAD), malignant hypertension, PE ruled out, pneumonia, pleural effusion. Patient reports some minimal improvement following Lasix. Will continue with diuresis. Echocardiogram has been ordered for this morning. #Pleural effusion - small bilateral pleural effusions. Lasix and echocardiogram as noted above. #Accelerated hypertension - resume patient's home medication when med rec available. Hydralazine IV p.r.n. At this time. #History of PE - CTA was negative. Further clarify laboratory studies per Dr. Johnston #Morbid obesity, BMI 45.1 patient reports significant weight increase after multiple steroid burst. #History of atrial fibrillation - the patient was diagnosed with bilateral PE at time of this diagnosis. patient currently sinus tachycardia. Monitor on telemetry. Resume patient's metoprolol. FEN - SLIV. electrolyte monitoring and replacement prn. diet as tolerated. PPX - SCDs as tolerated. Holding anticoagulation once appropriate labs have all been ordered than prophylactic dosing. Cor status-full. Disposition-patient initially admitted to observation status to see response to diuresis. Based on exam clear the patient will likely require greater than 2 midnight stay given the severity of her dyspnea. Will change to inpatient status.
--- NOTE | 2018-08-07 09:02 | ECHO ---
[email or web address] [address] Main: [phone] Fax: Transthoracic Echocardiogram Name: JOSE RAUL LEE MR#: [id number] Study Date: 08/07/2018 Study Time: 07:37 AM Date of : 1965 Age: 53 year(s) Height: 162.6 cm (64 in.) Weight: 118.84 kg (262 lb.) BSA: 2.19 m2 Gender: Female Examination: Echo Indication: Dyspnea/pleural effusions Image Quality: Technically Difficult Contrast: Requested by: Nasreen Hdez BP: 179 mmHg/103 mmHg Heart Rate: Rhythm: Indication: Dyspnea/pleural effusions Procedure Staff Prestressed Concrete Laborer: Penny Kinsey RDCS Reading Physician: Marcin Holman MD Requesting Provider: Conclusions: Mild concentric LV hypertrophy. EF is 62 %. Mild aortic valve regurgitation is present. technically limited study. Measurements: Chambers Valvular Assessment AV/MV Valvular Assessment TV/PV Normal Normal Normal Name Value Range Name Value Range Name Value Range Ao Janna (MM): 3.0 cm (2.2 cm-3.7 MV E Vmax: 1.79 m/s ( - ) cm) MV A Vmax: 1.19 m/s ( - ) IVSd (2D): 1.4 cm (0.6 cm-1.1 MV E/A: 1.50 ( - ) cm) LVDd (2D): 5.2 cm (3.9 cm-5.3 cm) LVDs (2D): 3.4 cm (2.1 cm-4 cm) LVPWd (2D): 1.4 cm ( - ) LVEF (2D): 62 (>=54 %) Continued Measurements: Chambers Name Value LADs: 4.8 cm Additional Vessels Name Value Patient: JOSE RAUL LEE Study Date: 08/07/2018 Page 1 of 2 07:37 AM Ao Ascendin.6 cm Findings: Left Ventricle: Normal size left ventricle. Mild concentric LV hypertrophy. Global hypercontractility of the left ventricle. EF is 62 %. Right Ventricle: Normal size right ventricle. Left Atrium: The left atrium is mildly dilated. Right Atrium: The right atrium is normal in size. Mitral Valve: Mitral valve not well visualized. Aortic Valve: Aortic valve is not well visualized. Mild aortic valve regurgitation is present. 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 Cannot R/O bicuspid valve (abnormal closure in M-mode).. Tricuspid Valve: Tricuspid valve not well visualized. Pulmonic Valve: Pulmonary valve not well visualized. Aorta: Normal size aortic root measuring 3.0 cm. Normal size ascending aorta measuring 3.6 cm. Pericardium: No pericardial effusion. Exam Comments: technically limited study. (No Signature Object) Patient: JOSE RAUL LEE Study Date: 08/07/2018 Page 2 of 2 07:37 AM [id number]
[2018-08-07] MEDS: METOPROLOL SUCCINATE XR 100 MG TAB PO SCH (09:24)
[2018-08-07] MEDS: ACETAMINOPHEN 325 MG TAB PO PRN ×3 (09:24→20:22)
--- NOTE | 2018-08-07 11:38 | ASMTCMCOM ---
CM Note CM Note Notes: Pts case discussed in tx rounds. Pt is a 53 /o female admitted for CHF. Pt will most likely not have any dc needs. CM available for changes. Plan: Independent Date Signed: 08/07/2018 11:37 AM Electronically Signed By:ELZA Juarez
[2018-08-07] MEDS ORDERED: IPRATROPIUM/ALBUTEROL 3 ML DEYVIAL IH PRN (12:10)
--- NOTE | 2018-08-07 12:14 | HOSPPROG ---
Hospitalist Progress Note Assessment/Plan: 53-year-old female with history of sarcoidosis, HTN, morbid obesity BMI 45.1, atrial fibrillation, history of bilateral PE status post nearly 1 year Xarelto presents with 24 hr of worsening dyspnea on exertion, cough, edema and PND. #Dyspnea on exertion (Acute) - Patient with orthopnea, PND, edema - DDx - including cardiac sarcoidosis, CHF/cardiomyopathy (significant family history for CAD), malignant hypertension, PE ruled out, pneumonia, pleural effusion, viral syndrome, bronchitis, asthma exacerbation (on recent course of steroids) - CXR on admission showed diffuse peribronchial thickening - CTA on admission shows diffuse peribronchial thickening, development of b/l ground glass opacities representing infectious vs. inflammatory process vs. mild pulmonary edema - Patient reports improvement following Lasix, able to ambulate with minimal WHITMAN this AM - Will continue with diuresis, 20 mg IV Lasix qd - Will consult Pulmonology due to new ground glass b/l infiltrates - TTE pending - Wean 02 as tolerated #Pleural effusion - trace bilateral pleural effusions. Lasix and echocardiogram as noted above. #Accelerated hypertension - Resume patient's home medications including Hydralazine, Metoprolol, and Amlodipine - Hydralazine IV p.r.n. At this time. #History of PE - CTA was negative on admission #Morbid obesity, BMI 45.1 patient reports significant weight increase after multiple steroid burst. #History of atrial fibrillation - The patient was diagnosed with bilateral PE at time of this diagnosis. - Patient currently sinus tachycardia. - Monitor on telemetry. - Resume patient's metoprolol. FEN - SLIV. electrolyte monitoring and replacement prn. diet as tolerated. PPX - SCDs as tolerated. Cor status-full. Disposition-patient initially admitted to observation status to see response to diuresis. Based on exam clear the patient will likely require greater than 2 midnight stay given the severity of her dyspnea. Will change to inpatient status. Objective: Vital Signs Temp Pulse Resp BP Pulse Ox 36.8 C 79 16 174/88 H 98 08/07/18 11:09 08/07/18 11:09 08/07/18 11:09 08/07/18 11:09 08/07/18 11:09 Microbiology 08/07/18 09:30 Respiratory Panel (PCR) - Final Nasal, Sinus - Swab No Organism Detected By Pcr Laboratory Results 08/07/18 05:08 08/07/18 05:08 08/06/18 08/07/18 08/08/18 05:59 05:59 05:59 Output Total 1100 Balance -1100 PT 13.2 SEC (12.0-15.0) 08/06/18 23:01 INR 0.98 (0.83-1.16) 08/06/18 23:01 ICD10 Worksheet Patient Problems: Problems Problem Status Onset Dyspnea on exertion Acute CHF (congestive heart failure) Acute Elevated troponin Acute New onset atrial fibrillation Acute
[2018-08-07] MEDS ORDERED: PROTOCOL POTASSIUM 1 DOSE MISC PRN (12:25)
[2018-08-07] MEDS ORDERED: predniSONE 10 MG TAB PO PRN (12:27)
[2018-08-07] MEDS ORDERED: ALBUTEROL 60 PUFFS/8 GM MDI IH PRN (12:27)
[2018-08-07] MEDS: guaiFENesin 600 MG TAB.ER PO SCH ×2 (13:35→20:23)
[2018-08-07] MEDS: MONTELUKAST SODIUM 10 MG TAB PO SCH (15:34)
--- NOTE | 2018-08-07 16:07 | PDMN ---
Medical Necessity Medical necessity: MCG: M190 heart failure: M197 HTN; pt presents with worsening dyspnea on exertion, cough, edema and PND. PMHX sarcoidosis, HTN, morbid obesity BMI of 45.1, a fib., bilat PE, CHF/ cardiomyopathy ( sig. family hx for CAD) ,. CXR shows diffuse peribronchial thickening, development of bilat. ground glass opacities , pulm consult pending. LISA pend., CXR trace bilat. Pul. effusions, elevated BNP, accelerated HTN -hydralazine IV, ( as high as 204/114 today) anticipate > 2 MN ongoing med nec care, further monitoring and tx.
[2018-08-07] MEDS ORDERED: POTASSIUM CL 10 MEQ TAB PO ONE (19:41)
--- NOTE | 2018-08-07 19:44 | GCON ---
PULMONARY/CRITICAL CARE CONSULTATION. REFERRING PROVIDER: Hermann Motley MD DATE OF CONSULTATION: 08/07/2018 REASON FOR REFERRAL: Evaluation and management of dyspnea, asthma, and pulmonary infiltrates. HISTORY: The patient is a 53-year-old woman who has prior history of sarcoidosis as well as asthma. She had a small pulmonary embolism last year, she also has morbid obesity. She states that she gets asthma, not infrequently ; for which, she takes prednisone. She had her last exacerbation a few weeks ago with symptoms that responded to a course of prednisone which was completed about a week ago. Over the last several days, she has had marked increase in dyspnea to the point that she can only walk a few feet before she has to stop. It is a bit atypical for her asthma symptoms as there is no wheezing or cough. She was admitted yesterday and has been diuresed. She reports that her dyspnea has improved. She denies any recent fevers. She has not had any skin rashes. PAST MEDICAL HISTORY: 1. Sarcoidosis. This was diagnosed approximately 15-20 years ago. I do not have any further details regarding that, but it was felt not to be active when the patient was seen by Dr. Johnston about 10 years ago. She was in the [place] about 2 years ago and it was felt that she had reactivation of her sarcoidosis so she was on prednisone for a few months due to symptoms of shortness of breath and skin rash which resolved with the prednisone. 2. Asthma. The patient has a longstanding history of asthma; for which, she is currently on Symbicort. She was also started on Singulair about a month or so ago by Dr. Johnston. She has had multiple courses of steroids due to increased symptoms. 3. Morbid obesity. The patient underwent a gastric bypass several years ago, lost 60 pounds, but then regained much of this weight back. 4. Pulmonary embolism. The patient was diagnosed with a small pulmonary embolism during hospitalization in August 2017. 5. Obstructive sleep apnea. The patient was diagnosed with this several years ago. She was initially on CPAP, but then had gastric bypass, lost weight, and CPAP stopped. Since then, she has gained weight and had some snoring but has not been re-evaluated or resumed CPAP. MEDICATIONS: At the time of admission, include: 1. Metoprolol. 2. Albuterol. 3. Amlodipine. 4. Hydralazine. 5. Symbicort. 6. Prednisone. 7. Citalopram. 8. Montelukast. ALLERGIES: None. SOCIAL HISTORY: The patient denies current tobacco use. She drinks alcohol rarely. FAMILY HISTORY: Remarkable only for hypertension and coronary artery disease. REVIEW OF SYSTEMS: A 10-point review of systems adds nothing to the history of illness. Specifically, she denies rash and admits to snoring. PHYSICAL EXAMINATION: GENERAL: The patient is awake, alert in no acute distress. VITAL SIGNS: Blood pressure is 148/90 with heart rate of 83. She is afebrile. Oxygen saturations are 98% on 3 L. HEENT: Normocephalic and atraumatic. No icterus. NECK: No JVD. Trachea is midline. CHEST: She has rales in the left more so than right lung. CARDIAC: Regular rate and rhythm without murmur. ABDOMEN: Soft, nontender. Bowel sounds are present. EXTREMITIES: No clubbing or cyanosis. She has 1+ lower extremity edema. NEURO: The patient is awake and alert. No gross motor or sensory deficits. LABORATORY: Chemistry is normal, as is CBC. D-dimer is 0.67. BNP is 3600. CT scan of the chest is negative for pulmonary embolism. It shows mild mediastinal adenopathy with maximum diameter of 22 mm. She has diffuse peribronchial thickening and some fairly widespread faint bilateral ground- glass infiltrates. There is no evidence of pulmonary emboli. Images reviewed by me. Echocardiogram demonstrates mild concentric LV hypertrophy and ejection fraction of 62%. The tricuspid valve is not well visualized. ASSESSMENT: 1. Dyspnea. This could be due to asthma, but the patient has pulmonary infiltrates and an elevated BNP that could be due to some pulmonary edema. She has clinically responded to Lasix with improved symptoms. She has normal systolic function but could have a component of diastolic dysfunction. It is also possible she has hypoxemia at home, particularly at night, which could contribute to diastolic dysfunction. 2. Asthma. The patient has a longstanding history of asthma with recurrent symptoms; although, it is possible that not all her symptoms are related to her asthma. Spirometry done at the time of her last visit with Dr. Johnston in June actually was more consistent with restrictive pattern with some improvement in flows following bronchodilator. 3. Pulmonary infiltrates. These could be most likely due to some pulmonary edema. An infectious cause is possible but less likely. It did not have the typical appearance of sarcoidosis. 4. History of sarcoid. This was diagnosed in the distant past. It is unclear if she had parenchymal disease at any point. She has some mildly enlarged lymph nodes which could be due to sarcoid. 5. Probable sleep apnea. The patient has morbid obesity and a prior history of sleep apnea. She is currently not on treatment. Sleep apnea could contribute to nocturnal hypoxemia and pulmonary hypertension as well as LV diastolic dysfunction and hypertension. RECOMMENDATIONS: 1. Agree with diuresis. 2. Check an Anthony level. 3. At some point, consider substituting another agent for metoprolol for the patient's hypertension as it could be contributing to her asthma; although, it is not clear that asthma is the primary cause of her current symptoms. 4. The patient should probably have evaluation for sleep apnea. This could be done as an outpatient and could start with overnight oximetry on room air. In the meantime, the patient should probably be on oxygen if she has any hypoxemia. 5. Morbid obesity. This likely contributes to the patient's symptoms, obstructive sleep apnea, and asthma. /[id number]/MODL MTDD
[2018-08-07] MEDS: BUDESONIDE/FORMOTEROL 160/4.5 60 PUFFS/MDI IH SCH (20:11)
[2018-08-07] MEDS: LORazepam 0.5 MG TAB PO PRN (23:12)
[2018-08-08] MEDS ORDERED: METOPROLOL TARTRATE 5 MG/5 ML INJ IVP SCH
[2018-08-08] MEDS ORDERED: METOPROLOL TARTRATE 5 MG/5 ML INJ IVP PRN (03:55)
[2018-08-08] MEDS: ACETAMINOPHEN 325 MG TAB PO PRN ×3 (06:19→22:18)
--- NOTE | 2018-08-08 07:51 | CPEKG ---
Test Reason : OPEN Blood Pressure : / mmHG Vent. Rate : 111 BPM Atrial Rate : 111 BPM P-R Int : 157 ms QRS Dur : 086 ms QT Int : 382 ms P-R-T Axes : 044 008 087 degrees QTc Int : 519 ms Sinus tachycardia Probable left atrial enlargement LVH with secondary repolarization abnormality Prolonged QT interval Confirmed by Nemesio Fouriner ([id number]) on 08/08/2018 7:50:58 AM Referred By: Confirmed By:Nemesio Fournier
[2018-08-08] MEDS: BUDESONIDE/FORMOTEROL 160/4.5 60 PUFFS/MDI IH SCH ×2 (08:52→21:01)
[2018-08-08] MEDS ORDERED: ENOXAPARIN 40 MG/0.4 ML SYR SC SCH (09:00)
[2018-08-08] MEDS: FUROSEMIDE 20 MG/2 ML VIAL IVP SCH ×2 (09:43→14:35)
[2018-08-08] MEDS: guaiFENesin 600 MG TAB.ER PO SCH ×2 (09:46→20:36)
[2018-08-08] MEDS: METOPROLOL SUCCINATE XR 100 MG TAB PO SCH (09:46)
[2018-08-08] MEDS: LISINOPRIL/HCTZ 20/12.5MG 1 EA TAB PO SCH (09:46)
[2018-08-08] MEDS: LORazepam 0.5 MG TAB PO PRN ×2 (09:59→22:18)
[2018-08-08] MEDS: ESCITALOPRAM OXALATE 10 MG TAB PO SCH (11:38)
--- NOTE | 2018-08-08 12:20 | HOSPPROG ---
Hospitalist Progress Note Assessment/Plan: 53-year-old female with history of sarcoidosis, HTN, morbid obesity BMI 45.1, atrial fibrillation, history of bilateral PE status post nearly 1 year Xarelto presents with 24 hr of worsening dyspnea on exertion, cough, edema and PND. #Dyspnea on exertion (Acute) - Patient with orthopnea, PND, edema - DDx - including cardiac sarcoidosis, CHF/cardiomyopathy (significant family history for CAD), malignant hypertension, PE ruled out, pneumonia, pleural effusion, viral syndrome, bronchitis, asthma exacerbation (on recent course of steroids) - CXR on admission showed diffuse peribronchial thickening, however no recent symptoms of URI - CTA on admission shows diffuse peribronchial thickening, development of b/l ground glass opacities representing infectious vs. inflammatory process vs. mild pulmonary edema - Patient reports improvement following Lasix, able to ambulate with minimal WHITMAN this AM - Will continue with diuresis, 20 mg IV Lasix qd, net negative 2.4 L overnight - Consulted Pulmonology on due to new ground glass b/l infiltrates, recommending continued diuresis - Wean 02 as tolerated #Pleural effusion - trace bilateral pleural effusions. Lasix and echocardiogram as noted above. #Accelerated hypertension - Restarted patient's home medications including Hydralazine, Metoprolol, and Amlodipine yesterday AM - BP continues to be elevated, started Lisinopril/HCTZ this AM - Hydralazine IV p.r.n. for SBP >180 - Continue to monitor #History of PE - CTA was negative on admission, currently off of Xarelto #Morbid obesity, BMI 45.1 patient reports significant weight increase after multiple steroid burst. #History of atrial fibrillation - The patient was diagnosed with bilateral PE at time of this diagnosis. - Patient currently sinus tachycardia. - Monitor on telemetry. - Resume patient's metoprolol. FEN - SLIV. electrolyte monitoring and replacement prn. diet as tolerated. PPX - SCDs as tolerated. Cor status-full. Disposition-patient initially admitted to observation status to see response to diuresis. Based on exam clear the patient will likely require greater than 2 midnight stay given the severity of her dyspnea. Inpatient status. Subjective: Patient repeats continued improvement in WHITMAN Objective: Vital Signs Temp Pulse Resp BP Pulse Ox 36.6 C 74 19 155/82 H 93 08/08/18 08:00 08/08/18 11:36 08/08/18 11:36 08/08/18 11:36 08/08/18 11:36 Laboratory Results 08/08/18 03:29 08/08/18 03:29 08/07/18 08/08/18 08/09/18 05:59 05:59 05:59 Intake Total 1100 500 Output Total 2425 725 Balance -1325 -225 PT 13.2 SEC (12.0-15.0) 08/06/18 23:01 INR 0.98 (0.83-1.16) 08/06/18 23:01 - Physical Exam Constitutional: no apparent distress Eyes: PERRL Ears, Nose, Mouth, Throat: moist mucous membranes Cardiovascular: regular rate and rhythym Respiratory: inspiratory crackles Gastrointestinal: soft, non-tender abdomen Musculoskeletal: full muscle strength Neurologic: AAOx3 Psychiatric: interacting appropriately ICD10 Worksheet Patient Problems: Problems Problem Status Onset Dyspnea on exertion Acute CHF (congestive heart failure) Acute Elevated troponin Acute New onset atrial fibrillation Acute
--- NOTE | 2018-08-08 15:00 | PDINTPN ---
Glazing Machine Operator Progress Note Assessment/Plan: Assessment: Dyspnea: I suspect the acute increase in baseline dyspnea is due to pulmonary edema in the setting of chronic asthma and obesity. Symptom improving with diuresis. Doubt that sarcoid is causing symptoms. HTN could be causing diastolic dysfunction-> pulmonary edema. Asthma: I think this is currently stable. HTN: Moderate-severe acutely increased, ? due to fluid overload. GWEN: Not currently treated. Morbid obesity. Plan: Continue diuresis. Antihypertensive Rx. Await PATRICA. Likely can discharge in 1-2 days, preferably on a diuretic. Might be worth trying to get her off b- arleen at some point to help with her asthma, but probably not right now. 08/08/18 14:56 08/08/18 15:00 Subjective: Dyspnea is better. Concerned about HTN Objective: Vital Signs Temp Pulse Resp BP Pulse Ox 36.6 C 74 19 155/82 H 93 08/08/18 08:00 08/08/18 11:36 08/08/18 11:36 08/08/18 11:36 08/08/18 11:36 Laboratory Results 08/08/18 03:29 08/08/18 03:29 08/07/18 08/08/18 08/09/18 05:59 05:59 05:59 Intake Total 1100 740 Output Total 2425 1825 Balance -1325 -1085 PT 13.2 SEC (12.0-15.0) 08/06/18 23:01 INR 0.98 (0.83-1.16) 08/06/18 23:01 Physical Exam - Physical Exam General Appearance: alert, no apparent distress EENT: normal ENT inspection Neck: normal inspection Respiratory: lungs clear, normal breath sounds Cardiac/Chest: regular rate, rhythm, No edema Abdomen: normal bowel sounds, non-tender Skin: normal color, warm/dry Extremities: normal range of motion, non-tender Neuro/Psych: alert, normal mood/affect, oriented x 3 ICD10 Worksheet Patient Problems: Problems Problem Status Onset Dyspnea on exertion Acute CHF (congestive heart failure) Acute Elevated troponin Acute New onset atrial fibrillation Acute
[2018-08-08] MEDS: MONTELUKAST SODIUM 10 MG TAB PO SCH (16:17)
[2018-08-08] MEDS: ENOXAPARIN 40 MG/0.4 ML SYR SC SCH (20:37)
[2018-08-09] MEDS: ACETAMINOPHEN 325 MG TAB PO PRN (06:13)
[2018-08-09] MEDS: LORazepam 0.5 MG TAB PO PRN ×2 (06:41→20:25)
[2018-08-09] MEDS: guaiFENesin 600 MG TAB.ER PO SCH ×2 (09:25→20:23)
[2018-08-09] MEDS: METOPROLOL SUCCINATE XR 100 MG TAB PO SCH (09:25)
[2018-08-09] MEDS: FUROSEMIDE 20 MG/2 ML VIAL IVP SCH ×2 (09:25→14:31)
[2018-08-09] MEDS: ENOXAPARIN 40 MG/0.4 ML SYR SC SCH ×2 (09:25→20:23)
[2018-08-09] MEDS: HYDROCODONE/APAP 5/325 TAB PO PRN ×3 (09:25→20:26)
[2018-08-09] MEDS: LISINOPRIL/HCTZ 20/12.5MG 1 EA TAB PO SCH (09:25)
[2018-08-09] MEDS: BUDESONIDE/FORMOTEROL 160/4.5 60 PUFFS/MDI IH SCH ×2 (10:13→21:31)
[2018-08-09] MEDS: ESCITALOPRAM OXALATE 10 MG TAB PO SCH (12:33)
--- NOTE | 2018-08-09 14:01 | HOSPPROG ---
Hospitalist Progress Note Assessment/Plan: 53-year-old female with history of sarcoidosis, HTN, morbid obesity BMI 45.1, atrial fibrillation, history of bilateral PE status post nearly 1 year Xarelto presents with 24 hr of worsening dyspnea on exertion, cough, edema and PND. #Dyspnea on exertion (Acute) - Patient with orthopnea, PND, edema - DDx - including cardiac sarcoidosis, CHF/cardiomyopathy (significant family history for CAD), malignant hypertension, PE ruled out, pneumonia, pleural effusion, viral syndrome, bronchitis, asthma exacerbation (on recent course of steroids) - CXR on admission showed diffuse peribronchial thickening, however no recent symptoms of URI - CTA on admission shows diffuse peribronchial thickening, development of b/l ground glass opacities representing infectious vs. inflammatory process vs. mild pulmonary edema - Patient reports improvement following Lasix, able to ambulate with minimal WHITMAN this AM - Will continue with diuresis, 20 mg IV Lasix qd - Consulted Pulmonology on due to new ground glass b/l infiltrates, recommending continued diuresis - Wean 02 as tolerated #Pleural effusion - trace bilateral pleural effusions. Lasix and echocardiogram as noted above. #Accelerated hypertension - Restarted patient's home medications including Hydralazine, Metoprolol, and Amlodipine - BP continues to be elevated - Hydralazine IV p.r.n. for SBP >180 - Continue to monitor #History of PE - CTA was negative on admission, currently off of Xarelto #Morbid obesity, BMI 45.1 patient reports significant weight increase after multiple steroid burst. #chronic Sarcoid -recent steroid burst. no indication for additional at this time #History of atrial fibrillation - The patient was diagnosed with bilateral PE at time of this diagnosis. - Patient currently sinus tachycardia. - Monitor on telemetry. - Resume patient's metoprolol. FEN - SLIV. electrolyte monitoring and replacement prn. diet as tolerated. PPX - SCDs as tolerated. Cor status-full. Plan: Stop HCTZ. cont Lisinopril and all other BP meds cont Lasix IV BID, can transition to PO and hopeful d/c tomorrow Pertinent studies: Viral PCR negative TTE with EF of 62% Subjective: no cp. still with some sob and pedal edema Objective: Vital Signs Temp Pulse Resp BP Pulse Ox 36.8 C 83 16 122/77 H 93 08/09/18 11:34 08/09/18 11:34 08/09/18 11:34 08/09/18 11:34 08/09/18 11:34 Laboratory Results 08/08/18 03:29 08/09/18 03:22 08/08/18 08/09/18 08/10/18 05:59 05:59 05:59 Intake Total 1100 1815 300 Output Total 2425 4525 Balance -1325 -2710 300 PT 13.2 SEC (12.0-15.0) 08/06/18 23:01 INR 0.98 (0.83-1.16) 08/06/18 23:01 - Physical Exam Constitutional: no apparent distress Eyes: PERRL, EOMI Ears, Nose, Mouth, Throat: moist mucous membranes, hearing normal Cardiovascular: regular rate and rhythym, edema Respiratory: no respiratory distress, reduced air movement Gastrointestinal: normoactive bowel sounds, soft, non-tender abdomen Skin: warm Neurologic: AAOx3 Psychiatric: interacting appropriately, not anxious, No encephalopathic Lymph, Heme, Immunologic: No petechiae ICD10 Worksheet Patient Problems: Problems Problem Status Onset Dyspnea on exertion Acute CHF (congestive heart failure) Acute Elevated troponin Acute New onset atrial fibrillation Acute
--- NOTE | 2018-08-09 15:24 | PDINTPN ---
Service Desk Team Lead Progress Note Assessment/Plan: Assessment: Dyspnea: I suspect the acute increase in baseline dyspnea is due to pulmonary edema in the setting of chronic asthma and obesity. Symptom improving with diuresis. Doubt that sarcoid is causing symptoms, PATRICA normal. HTN could be causing diastolic dysfunction-> pulmonary edema. Asthma: I think this is currently stable. HTN: Moderate-severe acutely increased, improved this afternoon on amlodipine, lisinopril, metoprolol, and Lasix GWEN: Not currently treated. Morbid obesity. Plan: Continue diuresis. Antihypertensive Rx. Likely can discharge tomorrow on p.o. diuretic. Might be worth trying to get her off b-arleen at some point to help with her asthma, but probably not right now. 08/09/18 15:24 Subjective: Feels breathing is about back to baseline. Able to walk on 1 L of oxygen. Objective: Vital Signs Temp Pulse Resp BP Pulse Ox 36.8 C 83 16 122/77 H 93 08/09/18 11:34 08/09/18 11:34 08/09/18 11:34 08/09/18 11:34 08/09/18 11:34 Laboratory Results 08/08/18 03:29 08/09/18 03:22 08/08/18 08/09/18 08/10/18 05:59 05:59 05:59 Intake Total 1100 1815 1180 Output Total 2425 4525 Balance -1325 -2710 1180 PT 13.2 SEC (12.0-15.0) 08/06/18 23:01 INR 0.98 (0.83-1.16) 08/06/18 23:01 Laboratory Tests 08/08/18 03:29 Angiotensin Convert Enz 21 Physical Exam - Physical Exam General Appearance: alert, no apparent distress EENT: normal ENT inspection Neck: normal inspection Respiratory: lungs clear, No normal breath sounds Cardiac/Chest: regular rate, rhythm, edema Abdomen: normal bowel sounds, non-tender Skin: normal color, warm/dry Extremities: normal inspection Neuro/Psych: alert, normal mood/affect, oriented x 3 ICD10 Worksheet Patient Problems: Problems Problem Status Onset Dyspnea on exertion Acute CHF (congestive heart failure) Acute Elevated troponin Acute New onset atrial fibrillation Acute
--- NOTE | 2018-08-09 15:28 | ASMTCMCOM ---
CM Note CM Note Notes: Pts case discussed in tx rounds. Pt is not medically stable to d/c yet. Pt should d/c without any medical needs when medically stable. CM available for changes. Plan: Independent Date Signed: 08/09/2018 03:28 PM Electronically Signed By:ELZA Juarez
[2018-08-09] MEDS: MONTELUKAST SODIUM 10 MG TAB PO SCH (16:43)
[2018-08-10] MEDS: LORazepam 0.5 MG TAB PO PRN (06:18)
[2018-08-10] MEDS: ACETAMINOPHEN 325 MG TAB PO PRN (06:18)
[2018-08-10] MEDS: BUDESONIDE/FORMOTEROL 160/4.5 60 PUFFS/MDI IH SCH (08:53)
[2018-08-10] MEDS ORDERED: LISINOPRIL 20 MG TAB PO SCH (09:00)
[2018-08-10] MEDS: guaiFENesin 600 MG TAB.ER PO SCH (09:08)
[2018-08-10] MEDS: METOPROLOL SUCCINATE XR 100 MG TAB PO SCH (09:08)
[2018-08-10] MEDS: ENOXAPARIN 40 MG/0.4 ML SYR SC SCH (09:08)
[2018-08-10] MEDS: FUROSEMIDE 20 MG/2 ML VIAL IVP SCH (09:10)
[2018-08-10 11:43] VITALS: BP 139/72
--- NOTE | 2018-08-10 12:28 | PDDCSUM ---
Discharge Summary Discharge Summary: 53-year-old female with history of sarcoidosis, HTN, morbid obesity BMI 45.1, atrial fibrillation, history of bilateral PE status post nearly 1 year Xarelto admitted with 24 hr of worsening dyspnea on exertion, cough, edema and PND. She was found to have volume overload and was diuresed with IV diuretics. TTE EF was preserved. She is now back to baseline, on RA, and will d/c on Lasix 20mg daily. Pulm provided consultation and it was felt that her sx's were volume related. She will f/u with her PCP next week. DDX: #Dyspnea on exertion (Acute) - Patient admitted with orthopnea, PND, edema #Pleural effusion - trace bilateral pleural effusions. #Accelerated hypertension - Restarted patient's home medications including Hydralazine, Metoprolol, and Amlodipine. Started Lisinopril. Her BP need further optimization and she will keep a BP journal going forward. #History of PE - CTA was negative on admission, currently off of Xarelto #Morbid obesity, BMI 45.1 #chronic Sarcoid -recent steroid burst. no indication for additional at this time #History of atrial fibrillation - Patient currently sinus tachycardia. - Resume patient's metoprolol. FEN - SLIV. electrolyte monitoring and replacement prn. diet as tolerated. Pertinent studies: Viral PCR negative TTE with EF of 62% Exam: NAD AAOX3 RRR CTA B S/NT/ND NO LE EDEMA MEDS: SEE MED REC F/U: PER ABOVE TOTAL TIME SPENT ON D/C IS 35 MINS.
[2018-08-10] MEDS: ESCITALOPRAM OXALATE 10 MG TAB PO SCH (12:59)
[2018-08-10] MEDS: HYDROCODONE/APAP 5/325 TAB PO PRN (12:59)
--- NOTE | 2018-08-10 19:21 | ASMTLACE ---
LACE Length of stay for Answers: 2 days current admission Acuity / Level of Answers: Yes Care: Did the patient have an inpatient admission? Comorbidities - select Answers: Congestive heart failure all that apply Opioid dependence / Chronic pain Other Notes: HTN; PE; AFib # of Emergency department Answers: 1-2 visits in the last 6 months Score: 13 Date Signed: 08/10/2018 07:21 PM Electronically Signed By:Kenisha Ferreira RN
--- NOTE | 2018-08-10 19:26 | ASDISCHSUM ---
Discharge Information Plan Status:Home with No Needs Medically Cleared to Leave:08/09/2018 Discharge Date:08/10/2018 01:06 PM CM D/C Disposition:Home, Routine, Self-Care ADT D/C Disposition:Home, Routine, Self-Care Projected Discharge Date:08/10/2018 01:06 PM Transportation at D/C:Family Discharge Delay Reason: Follow-Up Date:08/10/2018 01:06 PM Discharge Slot:2 - 12:01 pm - 18:00 pm Final Diagnosis:Dyspnea on exertion, pleural effusion, HTN, hx PE, morbid obesity, chronic sarcoid, afib Placement Information Patient Contact Information Contact Name:SWETHA Relationship: Address:[address] City:[place] Alternate Phone: [facility]/Zip Code:[place] [address] Email: Financial Information Financial Class:HMO and PPO Plans Primary Plan Desc:[facility] [employer] Primary Plan Number:[id number] Secondary Plan Desc: Secondary Plan Number: Assessment Information LACE LACE Length of stay for Answers: 2 days current admission Acuity / Level of Answers: Yes Care: Did the patient have an inpatient admission? Comorbidities - select Answers: Congestive heart failure all that apply Opioid dependence / Chronic pain Other Notes: HTN; PE; AFib # of Emergency department Answers: 1-2 visits in the last 6 months Score: 13 Date Signed: 08/10/2018 07:21 PM Electronically Signed By:Kenisha Ferreira RN [facility] DEL Progress Note CM Note CM Note Notes: Pts case discussed in tx rounds. Pt is a 53 /o female admitted for CHF. Pt will most likely not have any dc needs. CM available for changes. Plan: Independent Date Signed: 08/07/2018 11:37 AM Electronically Signed By:ELZA Juarez [facility] CM Progress Note CM Note CM Note Notes: Pts case discussed in tx rounds. Pt is not medically stable to d/c yet. Pt should d/c without any medical needs when medically stable. CM available for changes. Plan: Independent Date Signed: 08/09/2018 03:28 PM Electronically Signed By:ELZA Juarez [facility] CM Progress Note CM Note CM Note Notes: Reviewed chart, spoke with LAMONT Brownlee. Per Dr. Hicks, pt to discharge home independently with no identified needs today. No PT/OT evals. Pt to follow up as directed. No IM/RAPHAEL forms signed, not applicable. CM available for any further issues or concerns. Discharge Plan: Home Independently Date Signed: 08/10/2018 07:25 PM Electronically Signed By:Kenisha Ferreira RN Intervention Information
--- NOTE | 2018-08-14 13:37 | PQFORM ---
PHYSICIAN QUERY FORM Needs Your Response This query form is being sent to you to assure this patient record is coded properly. Please respond to the question below: SENIOR SECURITY ENGINEER QUESTION: Dr Hicks Discharge Summary lists fluid overload as cause of patients shortness of breath/ dyspnea.. Can the fluid overload be further clarified as _x__ Pulmonary edema ___ Left ventricular failure ___ Other (Please Specify ) ___ Unable to determine Thank You Marisol REYES Assessment Director INSTRUCTIONS FOR RESPONSE: Answer question by clicking on the "Edit Document" button. Move cursor to area below the stars. When complete, hit "Save." Click on the "Sign" button, then click "Sign" again. Type in your PIN and hit "Enter." MTDD
== END 2018-08-10 13:06 | disposition home or self-care (01) | DRG 189 ==
LOC: F2W 08-07 03:26 → OBSVTOIN 08-07 13:21
PROVIDERS: ADMIT Family Medicine; ATTEND Family Medicine
DX: J81.0 Acute pulmonary edema (principal); R06.02 Shortness of breath; D86.9 Sarcoidosis, unspecified; J45.909 Unspecified asthma, uncomplicated; I10 Essential (primary) hypertension; G43.909 Migraine, unspecified, not intractable, without status migrainosus; I48.91 Unspecified atrial fibrillation; G47.33 Obstructive sleep apnea (adult) (pediatric); E66.01 Morbid (severe) obesity due to excess calories; Z68.42 Body mass index [BMI] 45.0-49.9, adult; Z98.84 Bariatric surgery status; Z86.711 Personal history of pulmonary embolism; Z79.01 Long term (current) use of anticoagulants; Z87.891 Personal history of nicotine dependence; Z87.01 Personal history of pneumonia (recurrent); Z23 Encounter for immunization
CPT/HCPCS: 82164-90; 84484-ER; 96374; G0008; J0360; J1650; J1940; Q9967

== ENCOUNTER → 2018-11-06 | Outpatient (CLI) | payer OTHER | LOC: CIMAGING 18:42 | PROVIDERS: ATTEND Family Medicine | DX: I51.7 Cardiomegaly (principal); R09.89 Other specified symptoms and signs involving the circulatory and respiratory systems; J81.1 Chronic pulmonary edema | CPT/HCPCS: 71046-PO ==